=== PATIENT | male | born 1990 | race Caucasian/White ===

== ENCOUNTER 2023-06-24 19:40 | Emergency (ER) | payer SELFPAY ==
[~2023-06-24] VITALS: Ht 165.1 cm; Wt 80.8 kg
[2023-06-24 20:01] VITALS: BP 129/58; PULSE 93; RESP 18; TEMP 97.3; O2SAT 99
== END 2023-06-25 04:31 | disposition left against medical advice (07) ==
LOC: ER 19:40
DX: N48.89 Other specified disorders of penis (principal); Z53.21 Procedure and treatment not carried out due to patient leaving prior to being seen by health care provider
CPT/HCPCS: 99281